=== PATIENT | female | born 1970 | race African-American/Black ===

== ENCOUNTER 2021-11-11 11:17 | Inpatient (IN) | payer MEDICARE, OTHER ==
[~2021-11-11] VITALS: Ht 177.8 cm; Wt 104.3 kg
[2021-11-11] VITALS (13 sets, daily range): BP systolic 113–145; BP diastolic 60–88
[~2021-11-11 11:17] MED LIST: ETOMIDATE 2MG/ML 10ML VIAL IV ONE; SUCCINYLCHOLINE CHLORIDE 200MG/10ML IV ONE
[2021-11-11] MEDS ORDERED: PIPERACILLIN/TAZ 3.375G PREMIX 50 ML IV ONE (11:45)
[2021-11-11] MEDS ORDERED: PROPOFOL 10MG/ML 100ML 100 ML IV ONE (11:45)
[2021-11-11] MEDS ORDERED: SODIUM CHLORIDE 0.9% 1000ML BAG (SEPSIS BOLUS) IV ONE (11:45)
[2021-11-11] MEDS ORDERED: VANCOMYCIN 1G PREMIX 200 ML IV ONE (11:45)
[2021-11-11 11:58] LABS: HEMATOCRIT. 42.6 % (36.0-48.0); HEMOGLOBIN. 13.1 g/dL (12.0-16.0); MEAN CORPUSCULAR HEMOGLOBIN 25.1 pg (28.0-32.0); MEAN CORPUSCULAR VOLUME 81.4 fL (81.0-99.0); MEAN PLATELET VOLUME 10.9 fl (7.4-10.4); PLATELET 355 x1000/uL (130-400); RED BLOOD CELL COUNT 5.23 mill/uL (4.2-5.4); RED CELL DISTRIBUTION WIDTH 17.6 % (11.6-14.6)
[2021-11-11] MEDS ORDERED: ACETAMINOPHEN 650MG SUPP PR ONE (12:00)
[2021-11-11 12:04] LABS: INR 1.2; PROTHROMBIN TIME 13.1 sec (9.6-11.0)
[2021-11-11] MEDS ORDERED: VANCOMYCIN 1GM PMX (XELLIA) 200 ML IV NR ×2 (12:15→16:00)
[2021-11-11 12:22] LABS: CLARITY URINE TURBID (CLEAR); COLOR URINE DARK YELLOW (YELLOW); KETONES URINE TRACE (NEGATIVE); LEUKOCYTE ESTERASE URINE 2+ (NEGATIVE); NITRITE URINE POSITIVE (NEGATIVE); OCCULT BLOOD URINE 3+ (NEGATIVE); PROTEIN URINE 4+ (NEGATIVE); SPECIFIC GRAVITY URINE 1.028 (1.005-1.030)
[2021-11-11 12:23] LABS: CHLORIDE 122 mEq/L (98-107)
[2021-11-11 12:27] LABS: BG CARBOXYHEMOGLOBIN 0.3 % (0.5-1.5); BG DEOXYHEMOGLOBIN 0.6 % (0.0-5.0); BG FRACTION INSPIRED OXYGEN 100; BG HCO3 ACT 18.1 mmol/L (22.0-26.0); BG METHEMOGLOBIN 0.1 % (0.0-1.5); BG OXYGEN SATURATION 99.4 % (92.0-98.5); BG PCO2 31.7 mmHg (35.0-45.0); BG PH 7.375 (7.350-7.450); BG PO2 362.4 mmHg (75.0-100.0); BG SAMPLE SITE RIGHT RADIAL; BG TOTAL HEMOGLOBIN 13.1 g/dL (12.0-18.0); BG VENT MODE VENT - AC
[2021-11-11] MEDS ORDERED: DEXAMETHASONE 10 MG/ML VIAL IV ONE (12:30)
[2021-11-11 12:35] LABS: PLATELET ESTIMATE NORMAL
[2021-11-11] MEDS ORDERED: ENOXAPARIN 40MG/0.4ML SYR SUBCUT SCH (15:15)
[2021-11-11] MEDS ORDERED: MAGNESIUM/ALUMINUM HYDROXIDE/SIMETHICONE 30ML UDC PO PRN (15:15)
[2021-11-11] MEDS ORDERED: ONDANSETRON HCL 4MG/2ML INJ IV PRN (15:15)
[2021-11-11] MEDS ORDERED: HYDROCODONE/ACETAMINOPHEN 5/325MG TABLET PO PRN (15:15)
[2021-11-11] MEDS ORDERED: GUAIFENESIN 200MG/10ML SUGAR FREE UDC PO PRN (15:15)
[2021-11-11] MEDS ORDERED: DOCUSATE SODIUM 100MG CAPSULE PO PRN (15:15)
[2021-11-11] MEDS ORDERED: HYDRALAZINE 20MG/ML VIAL IV PRN (15:15)
[2021-11-11] MEDS ORDERED: CLONIDINE 0.1MG TABLET PO PRN (15:15)
[2021-11-11] MEDS ORDERED: IPRATROPIUM/ALBUTEROL 0.5-3(2.5)MG/3ML NEB HHN PRN ×2 (15:15→15:30)
[2021-11-11] MEDS ORDERED: DEXTROSE 50% WATER 50ML SYRINGE IV PRN (15:15)
[2021-11-11] MEDS ORDERED: MORPHINE SULFATE 2 MG/ML CPJ (NOT FOR IM USE) IV PRN (15:15)
[2021-11-11] MEDS ORDERED: PIPERACILLIN/TAZ 3.375G PREMIX 50 ML IV SCH (15:15)
[2021-11-11] MEDS ORDERED: FENTANYL 2500MCG/250ML PMX 250 ML IV PRN (15:30)
[2021-11-11] MEDS: DEXTROSE 5% WATER 1,000 ML IV SCH (15:57)
[2021-11-11] MEDS: IPRATROPIUM/ALBUTEROL 0.5-3(2.5)MG/3ML NEB HHN SCH ×2 (16:04→20:23)
[2021-11-11] MEDS: ENOXAPARIN 30MG/0.3ML SYR SUBCUT SCH (18:48)
[2021-11-11] MEDS: BLOOD SUGAR DIAGNOSTIC STRIP TEST SCH (18:48)
[2021-11-11] MEDS: PIPERACILLIN/TAZOBACTAM 3.375 G in DEXTROSE 5% WATER 50 ML IV SCH (22:00)
[2021-11-11] MEDS: FAMOTIDINE 20MG TABLET PO SCH (22:00)
[2021-11-11] MEDS: SODIUM CHLORIDE 0.9% INJ 3ML FLUSH IVF SCH (22:00)
[2021-11-12] VITALS (49 sets, daily range): BP systolic 91–147; BP diastolic 36–77
[2021-11-12] MEDS: PROPOFOL 10MG/ML 100ML 100 ML IV PRN ×4 (00:11→15:36)
[2021-11-12] MEDS: IPRATROPIUM/ALBUTEROL 0.5-3(2.5)MG/3ML NEB HHN SCH ×7 (00:29→23:56)
[2021-11-12] MEDS: INSULIN LISPRO 100 UNITS/ML SUBCUT SCH ×4 (02:24→17:28)
[2021-11-12] MEDS: DEXTROSE 5% WATER 1,000 ML IV SCH ×2 (04:30→17:28)
[2021-11-12] MEDS: SODIUM CHLORIDE 0.9% INJ 3ML FLUSH IVF SCH ×3 (06:00→21:19)
[2021-11-12] MEDS: BLOOD SUGAR DIAGNOSTIC STRIP TEST SCH ×4 (06:00→17:23)
[2021-11-12] MEDS: ENOXAPARIN 30MG/0.3ML SYR SUBCUT SCH ×2 (06:12→17:27)
[2021-11-12 06:40] LABS: HEMATOCRIT. 34.9 % (36.0-48.0); HEMOGLOBIN. 10.3 g/dL (12.0-16.0); MEAN CORPUSCULAR HEMOGLOBIN 24.6 pg (28.0-32.0); MEAN CORPUSCULAR VOLUME 83.1 fL (81.0-99.0); MEAN PLATELET VOLUME 10.4 fl (7.4-10.4); PLATELET 217 x1000/uL (130-400); RED BLOOD CELL COUNT 4.21 mill/uL (4.2-5.4); RED CELL DISTRIBUTION WIDTH 17.7 % (11.6-14.6)
[2021-11-12 08:09] LABS: CHLORIDE 122 mEq/L (98-107)
[2021-11-12 09:11] LABS: BG CARBOXYHEMOGLOBIN 0.3 % (0.5-1.5); BG DEOXYHEMOGLOBIN 1.3 % (0.0-5.0); BG FRACTION INSPIRED OXYGEN 60; BG HCO3 ACT 18.1 mmol/L (22.0-26.0); BG METHEMOGLOBIN 0.3 % (0.0-1.5); BG OXYGEN SATURATION 98.7 % (92.0-98.5); BG OXYHEMOGLOBIN 98.1 % (94.0-97.0); BG PCO2 30.9 mmHg (35.0-45.0); BG PH 7.385 (7.350-7.450); BG PO2 196.5 mmHg (75.0-100.0); BG SAMPLE SITE RH; BG TOTAL HEMOGLOBIN 10.5 g/dL (12.0-18.0); BG VENT MODE VENT - AC
[2021-11-12] MEDS: INSULIN GLARGINE 100 UNITS/ML SUBCUT SCH (09:57)
[2021-11-12] MEDS: PIPERACILLIN/TAZOBACTAM 3.375 G in DEXTROSE 5% WATER 50 ML IV SCH ×2 (09:57→21:18)
[2021-11-12 12:51] LABS: PLATELET ESTIMATE NORMAL
[2021-11-12] MEDS ORDERED: POTASSIUM CHLORIDE 20MEQ/PACKET NG SCH (13:00)
[2021-11-12] MEDS ORDERED: VANCOMYCIN 1GM PMX (XELLIA) 200 ML IV SCH (16:00)
[2021-11-12] MEDS ORDERED: SERT100T MT (16:15)
[2021-11-12] MEDS ORDERED: LEVO300T2 MT (16:15)
[2021-11-12] MEDS ORDERED: ASPI-1497 MT (16:15)
[2021-11-12] MEDS ORDERED: LITH300C3 MT (16:15)
[2021-11-12] MEDS ORDERED: B12/1TAB MT (16:15)
[2021-11-12] MEDS ORDERED: ATOR40TA70 MT (16:15)
[2021-11-12] MEDS ORDERED: CLOZ100T31 MT (16:15)
[2021-11-12] MEDS ORDERED: DOCU-138 MT (16:15)
[2021-11-12] MEDS ORDERED: MULT-1116 MT (16:15)
[2021-11-12] MEDS ORDERED: METF-873 PO (16:15)
[2021-11-12] MEDS ORDERED: AMLO10TA80 MT (16:15)
[2021-11-12] MEDS: FAMOTIDINE 20MG TABLET PO SCH (21:18)
[2021-11-13] VITALS (59 sets, daily range): BP systolic 91–155; BP diastolic 39–78
[2021-11-13] MEDS: PROPOFOL 10MG/ML 100ML 100 ML IV PRN ×2 (00:11→08:05)
[2021-11-13] MEDS: INSULIN LISPRO 100 UNITS/ML SUBCUT SCH ×4 (00:28→17:43)
[2021-11-13] MEDS: BLOOD SUGAR DIAGNOSTIC STRIP TEST SCH ×4 (00:29→17:29)
[2021-11-13] MEDS: IPRATROPIUM/ALBUTEROL 0.5-3(2.5)MG/3ML NEB HHN SCH ×5 (03:44→20:37)
[2021-11-13] MEDS: SODIUM CHLORIDE 0.9% INJ 3ML FLUSH IVF SCH ×3 (05:04→20:37)
[2021-11-13] MEDS: ACETAMINOPHEN 325MG TABLET PO PRN ×2 (05:22→12:37)
[2021-11-13] MEDS: ENOXAPARIN 30MG/0.3ML SYR SUBCUT SCH ×2 (06:08→17:44)
[2021-11-13] MEDS: LEVOTHYROXINE SODIUM 200MCG TABLET PO SCH (08:04)
[2021-11-13] MEDS: DEXTROSE 5% WATER 1,000 ML IV SCH ×2 (08:04→20:37)
[2021-11-13 08:20] LABS: BG BASE EXCESS -5.2 mmol/L (-2.0-2.0); BG CARBOXYHEMOGLOBIN 0.2 % (0.5-1.5); BG DEOXYHEMOGLOBIN 1.1 % (0.0-5.0); BG FRACTION INSPIRED OXYGEN 40; BG HCO3 ACT 18.8 mmol/L (22.0-26.0); BG METHEMOGLOBIN 0.2 % (0.0-1.5); BG OXYGEN SATURATION 98.9 % (92.0-98.5); BG OXYHEMOGLOBIN 98.5 % (94.0-97.0); BG PO2 178.2 mmHg (75.0-100.0); BG SAMPLE SITE RIGHT RADIAL; BG TOTAL HEMOGLOBIN 10.1 g/dL (12.0-18.0); BG VENT MODE VENT - AC
[2021-11-13 08:43] LABS: HEMATOCRIT 31.2 % (36.0-48.0); HEMOGLOBIN 9.6 g/dL (12.0-16.0); MEAN CORPUSCULAR HEMOGLOBIN 24.7 pg (28.0-32.0); MEAN CORPUSCULAR VOLUME 80.5 fL (81.0-99.0); PLATELET 187 x1000/uL (130-400); RED BLOOD CELL COUNT 3.88 mill/uL (4.2-5.4); RED CELL DISTRIBUTION WIDTH 17.3 % (11.6-14.6)
[2021-11-13 08:46] LABS: CHLORIDE 119 mEq/L (98-107)
[2021-11-13] MEDS: INSULIN GLARGINE 100 UNITS/ML SUBCUT SCH (09:21)
[2021-11-13] MEDS: PIPERACILLIN/TAZOBACTAM 3.375 G in DEXTROSE 5% WATER 50 ML IV SCH ×2 (09:21→20:37)
[2021-11-13 10:25] LABS: BG BASE EXCESS -5.4 mmol/L (-2.0-2.0); BG CARBOXYHEMOGLOBIN 0.3 % (0.5-1.5); BG DEOXYHEMOGLOBIN 1.3 % (0.0-5.0); BG FRACTION INSPIRED OXYGEN 40; BG HCO3 ACT 18.6 mmol/L (22.0-26.0); BG METHEMOGLOBIN 0.2 % (0.0-1.5); BG OXYGEN SATURATION 98.7 % (92.0-98.5); BG OXYHEMOGLOBIN 98.2 % (94.0-97.0); BG PCO2 31.4 mmHg (35.0-45.0); BG PH 7.391 (7.350-7.450); BG PO2 136.1 mmHg (75.0-100.0); BG SAMPLE SITE RIGHT RADIAL; BG TOTAL HEMOGLOBIN 11.1 g/dL (12.0-18.0); BG TOTAL RESPIRATORY RATE 41 b/min; BG VENT MODE VENT - CPAP
[2021-11-13] MEDS: VANCOMYCIN 1GM PMX (XELLIA) 200 ML IV SCH (12:38)
[2021-11-13] MEDS ORDERED: NALOXONE HCL 0.4MG/ML VIAL IV PRN (14:45)
[2021-11-13] MEDS: FAMOTIDINE 20MG TABLET PO SCH (20:37)
[2021-11-14] VITALS (47 sets, daily range): BP systolic 102–172; BP diastolic 36–106
[2021-11-14] MEDS: INSULIN LISPRO 100 UNITS/ML SUBCUT SCH ×5 (00:05→23:58)
[2021-11-14] MEDS: IPRATROPIUM/ALBUTEROL 0.5-3(2.5)MG/3ML NEB HHN SCH ×5 (01:27→20:00)
[2021-11-14] MEDS: BLOOD SUGAR DIAGNOSTIC STRIP TEST SCH ×5 (06:00→23:43)
[2021-11-14 06:11] LABS: BASOPHILS % 0.3 % (0.0-2.0); EOSINOPHILS % 5.9 % (0.0-5.0); HEMATOCRIT. 33.3 % (36.0-48.0); HEMOGLOBIN. 10.3 g/dL (12.0-16.0); LYMPHOCYTES % 14.3 % (20.0-50.0); MEAN PLATELET VOLUME 10.3 fl (7.4-10.4); MONOCYTES % 4.4 % (2.0-8.0); NEUTROPHILS % 75.1 % (40.0-76.0); PLATELET 197 x1000/uL (130-400); RED BLOOD CELL COUNT 4.11 mill/uL (4.2-5.4); RED CELL DISTRIBUTION WIDTH 17.5 % (11.6-14.6)
[2021-11-14 06:15] LABS: CHLORIDE 113 mEq/L (98-107)
[2021-11-14] MEDS: SODIUM CHLORIDE 0.9% INJ 3ML FLUSH IVF SCH ×3 (06:52→21:07)
[2021-11-14] MEDS: ENOXAPARIN 30MG/0.3ML SYR SUBCUT SCH ×2 (06:52→17:42)
[2021-11-14] MEDS: ACETAMINOPHEN 325MG TABLET PO PRN ×3 (08:10→21:07)
[2021-11-14] MEDS: LEVOTHYROXINE SODIUM 200MCG TABLET PO SCH (08:11)
[2021-11-14] MEDS: PIPERACILLIN/TAZOBACTAM 3.375 G in DEXTROSE 5% WATER 50 ML IV SCH ×2 (08:12→21:07)
[2021-11-14] MEDS: CITRIC ACID/SODIUM CITRATE SOLN 30ML UDC PO SCH ×3 (08:22→21:06)
[2021-11-14] MEDS: VANCOMYCIN 1GM PMX (XELLIA) 200 ML IV SCH ×2 (08:27→21:07)
[2021-11-14] MEDS ORDERED: POTASSIUM CHLORIDE 20MEQ/PACKET PO SCH (09:00)
[2021-11-14] MEDS ORDERED: INSULIN GLARGINE 100 UNITS/ML SUBCUT SCH (10:00)
[2021-11-14] MEDS: DEXTROSE 5% WATER 1,000 ML IV SCH ×2 (10:02→23:43)
[2021-11-14] MEDS: FAMOTIDINE 20MG TABLET PO SCH (21:07)
[2021-11-15] VITALS (31 sets, daily range): BP systolic 46–142; BP diastolic 20–108
[2021-11-15] MEDS: IPRATROPIUM/ALBUTEROL 0.5-3(2.5)MG/3ML NEB HHN SCH ×6 (04:00→20:41)
[2021-11-15] MEDS: BLOOD SUGAR DIAGNOSTIC STRIP TEST SCH ×3 (05:12→17:53)
[2021-11-15] MEDS: SODIUM CHLORIDE 0.9% INJ 3ML FLUSH IVF SCH ×3 (05:12→20:58)
[2021-11-15] MEDS: CITRIC ACID/SODIUM CITRATE SOLN 30ML UDC PO SCH ×3 (05:21→21:09)
[2021-11-15] MEDS: ENOXAPARIN 30MG/0.3ML SYR SUBCUT SCH ×2 (05:22→18:25)
[2021-11-15] MEDS: ACETAMINOPHEN 325MG TABLET PO PRN ×2 (05:22→11:53)
[2021-11-15] MEDS: INSULIN LISPRO 100 UNITS/ML SUBCUT SCH ×3 (05:23→18:26)
[2021-11-15] MEDS: LEVOTHYROXINE SODIUM 200MCG TABLET PO SCH (05:23)
[2021-11-15 06:27] LABS: BASOPHILS % 0.6 % (0.0-2.0); EOSINOPHILS % 3.8 % (0.0-5.0); HEMOGLOBIN. 9.8 g/dL (12.0-16.0); LYMPHOCYTES % 10.9 % (20.0-50.0); MEAN CORPUSCULAR HEMOGLOBIN 25.1 pg (28.0-32.0); MEAN CORPUSCULAR VOLUME 79.4 fL (81.0-99.0); MEAN PLATELET VOLUME 10.9 fl (7.4-10.4); MONOCYTES % 3.3 % (2.0-8.0); NEUTROPHILS % 81.4 % (40.0-76.0); PLATELET 221 x1000/uL (130-400); RED BLOOD CELL COUNT 3.91 mill/uL (4.2-5.4)
[2021-11-15 06:29] LABS: CHLORIDE 107 mEq/L (98-107)
[2021-11-15 06:38] LABS: PHOSPHORUS 1.5 mg/dL (2.5-4.9)
[2021-11-15] MEDS ORDERED: POTASSIUM CHLORIDE INJ 40 MEQ in DEXT 5% WATER 250 ML IV ONE (07:30)
[2021-11-15] MEDS: VANCOMYCIN 1GM PMX (XELLIA) 200 ML IV SCH ×2 (08:06→20:54)
[2021-11-15] MEDS: KCL 20MEQ/100ML X 2 FOR TOTAL KCL 40MEQ/200ML IV SCH ×2 (08:06→11:47)
[2021-11-15] MEDS: PIPERACILLIN/TAZOBACTAM 3.375 G in DEXTROSE 5% WATER 50 ML IV SCH ×2 (09:31→20:54)
[2021-11-15] MEDS ORDERED: MAGNESIUM 2 G PREMIX 50 ML IV SCH (10:00)
[2021-11-15] MEDS ORDERED: POTASSIUM PHOS,M-BASIC-D-BASIC 30 MMOL in DEXT 5% WATER 500 ML IV SCH (10:00)
[2021-11-15] MEDS: INSULIN GLARGINE 100 UNITS/ML SUBCUT SCH (10:17)
[2021-11-15] MEDS: DIPHENHYDRAMINE 50MG/ML VIAL IV PRN (21:09)
[2021-11-15] MEDS: FAMOTIDINE 20MG TABLET PO SCH (21:11)
[2021-11-16] MEDS: IPRATROPIUM/ALBUTEROL 0.5-3(2.5)MG/3ML NEB HHN SCH ×5 (00:24→19:52)
[2021-11-16 04:00] VITALS: BP 112/74
[2021-11-16 06:38] LABS: BASOPHILS % 0.5 % (0.0-2.0); EOSINOPHILS % 4.5 % (0.0-5.0); HEMATOCRIT. 31.3 % (36.0-48.0); HEMOGLOBIN. 9.9 g/dL (12.0-16.0); LYMPHOCYTES % 16.2 % (20.0-50.0); MEAN CORPUSCULAR HEMOGLOBIN 24.9 pg (28.0-32.0); MEAN CORPUSCULAR VOLUME 79.1 fL (81.0-99.0); MEAN PLATELET VOLUME 10.4 fl (7.4-10.4); MONOCYTES % 4.1 % (2.0-8.0); NEUTROPHILS % 74.7 % (40.0-76.0); PLATELET 265 x1000/uL (130-400); RED BLOOD CELL COUNT 3.96 mill/uL (4.2-5.4); RED CELL DISTRIBUTION WIDTH 16.8 % (11.6-14.6)
[2021-11-16] MEDS: CITRIC ACID/SODIUM CITRATE SOLN 30ML UDC PO SCH ×3 (06:39→21:19)
[2021-11-16] MEDS: ENOXAPARIN 30MG/0.3ML SYR SUBCUT SCH ×2 (06:39→18:13)
[2021-11-16] MEDS: LEVOTHYROXINE SODIUM 150MCG TABLET PO SCH (06:40)
[2021-11-16] MEDS: BLOOD SUGAR DIAGNOSTIC STRIP TEST SCH ×4 (06:41→18:09)
[2021-11-16] MEDS: SODIUM CHLORIDE 0.9% INJ 3ML FLUSH IVF SCH ×3 (06:42→21:20)
[2021-11-16] MEDS: INSULIN LISPRO 100 UNITS/ML SUBCUT SCH ×4 (06:46→18:49)
[2021-11-16 06:57] LABS: CHLORIDE 107 mEq/L (98-107)
[2021-11-16 07:13] LABS: PHOSPHORUS 2.8 mg/dL (2.5-4.9)
[2021-11-16 08:00] VITALS: BP 137/67
[2021-11-16] MEDS: VANCOMYCIN 1GM PMX (XELLIA) 200 ML IV SCH ×2 (09:12→21:19)
[2021-11-16] MEDS: PIPERACILLIN/TAZOBACTAM 3.375 G in DEXTROSE 5% WATER 50 ML IV SCH ×2 (09:13→21:19)
[2021-11-16] MEDS ORDERED: POTASSIUM CHLORIDE INJ 40 MEQ in DEXT 5% WATER 250 ML IV NR ×2 (11:00→12:30)
[2021-11-16] MEDS: INSULIN GLARGINE 100 UNITS/ML SUBCUT SCH (11:42)
[2021-11-16 11:43] VITALS: BP 129/64
[2021-11-16 16:00] VITALS: BP 158/67
[2021-11-16 20:00] VITALS: BP 122/59
[2021-11-16] MEDS: FAMOTIDINE 20MG TABLET PO SCH (21:19)
[2021-11-17] VITALS (7 sets, daily range): BP systolic 121–138; BP diastolic 64–79
[2021-11-17] MEDS: IPRATROPIUM/ALBUTEROL 0.5-3(2.5)MG/3ML NEB HHN SCH ×4 (02:31→20:37)
[2021-11-17] MEDS: CITRIC ACID/SODIUM CITRATE SOLN 30ML UDC PO SCH ×3 (06:06→22:56)
[2021-11-17] MEDS: ENOXAPARIN 30MG/0.3ML SYR SUBCUT SCH ×2 (06:06→18:36)
[2021-11-17] MEDS: LEVOTHYROXINE SODIUM 150MCG TABLET PO SCH (06:06)
[2021-11-17] MEDS: SODIUM CHLORIDE 0.9% INJ 3ML FLUSH IVF SCH ×3 (06:06→22:58)
[2021-11-17] MEDS: BLOOD SUGAR DIAGNOSTIC STRIP TEST SCH ×4 (06:06→18:34)
[2021-11-17] MEDS: INSULIN LISPRO 100 UNITS/ML SUBCUT SCH ×4 (06:07→18:56)
[2021-11-17] MEDS: PIPERACILLIN/TAZOBACTAM 3.375 G in DEXTROSE 5% WATER 50 ML IV SCH (09:27)
[2021-11-17] MEDS: INSULIN GLARGINE 100 UNITS/ML SUBCUT SCH (11:04)
[2021-11-17] MEDS: ACETAMINOPHEN 325MG TABLET PO PRN ×2 (13:01→18:35)
[2021-11-17 17:30] LABS: CHLORIDE 111 mEq/L (98-107)
[2021-11-17 17:40] LABS: PHOSPHORUS 2.4 mg/dL (2.5-4.9)
[2021-11-17] MEDS ORDERED: POTASSIUM CHLORIDE 20MEQ TABLET SR PO NR (21:00)
[2021-11-17] MEDS ORDERED: POTASSIUM PHOS,M-BASIC-D-BASIC 15 MMOL in DEXT 5% WATER 245 ML IV NR (22:00)
[2021-11-17] MEDS: FAMOTIDINE 20MG TABLET PO SCH (22:57)
[2021-11-18] VITALS: BP 130/69
[2021-11-18] MEDS: INSULIN LISPRO 100 UNITS/ML SUBCUT SCH ×4 (01:51→18:00)
[2021-11-18] MEDS: IPRATROPIUM/ALBUTEROL 0.5-3(2.5)MG/3ML NEB HHN SCH ×4 (02:22→18:00)
[2021-11-18 04:00] VITALS: BP 128/52
[2021-11-18] MEDS: SODIUM CHLORIDE 0.9% INJ 3ML FLUSH IVF SCH ×3 (05:58→21:54)
[2021-11-18] MEDS: LEVOTHYROXINE SODIUM 150MCG TABLET PO SCH (05:59)
[2021-11-18] MEDS: BLOOD SUGAR DIAGNOSTIC STRIP TEST SCH ×4 (06:00→17:41)
[2021-11-18] MEDS: CITRIC ACID/SODIUM CITRATE SOLN 30ML UDC PO SCH ×3 (06:00→21:54)
[2021-11-18] MEDS: ENOXAPARIN 30MG/0.3ML SYR SUBCUT SCH ×2 (06:35→17:53)
[2021-11-18 06:49] LABS: BASOPHILS % 0.5 % (0.0-2.0); EOSINOPHILS % 2.4 % (0.0-5.0); HEMATOCRIT. 31.6 % (36.0-48.0); HEMOGLOBIN. 10.2 g/dL (12.0-16.0); LYMPHOCYTES % 21.4 % (20.0-50.0); MEAN CORPUSCULAR HEMOGLOBIN 25.7 pg (28.0-32.0); MEAN CORPUSCULAR VOLUME 79.4 fL (81.0-99.0); MEAN PLATELET VOLUME 9.8 fl (7.4-10.4); MONOCYTES % 6.3 % (2.0-8.0); NEUTROPHILS % 69.4 % (40.0-76.0); PLATELET 323 x1000/uL (130-400); RED BLOOD CELL COUNT 3.98 mill/uL (4.2-5.4); RED CELL DISTRIBUTION WIDTH 16.8 % (11.6-14.6)
[2021-11-18 07:15] LABS: CHLORIDE 109 mEq/L (98-107)
[2021-11-18 07:24] LABS: PHOSPHORUS 2.7 mg/dL (2.5-4.9)
[2021-11-18 08:30] VITALS: BP 133/60
[2021-11-18] MEDS ORDERED: POTASSIUM CHLORIDE 20MEQ/PACKET PO NR (10:30)
[2021-11-18] MEDS: INSULIN GLARGINE 100 UNITS/ML SUBCUT SCH (10:40)
[2021-11-18 12:11] VITALS: BP 127/64
[2021-11-18] MEDS: HALOPERIDOL LACTATE 5MG/ML VIAL IM PRN (15:40)
[2021-11-18 16:30] VITALS: BP 138/61
[2021-11-18 20:00] VITALS: BP 117/86
[2021-11-18] MEDS: FAMOTIDINE 20MG TABLET PO SCH (21:53)
[2021-11-19] VITALS: BP 121/57
[2021-11-19] MEDS: SODIUM CHLORIDE 0.9% INJ 3ML FLUSH IVF SCH ×3 (05:45→20:41)
[2021-11-19] MEDS: BLOOD SUGAR DIAGNOSTIC STRIP TEST SCH ×4 (05:46→18:01)
[2021-11-19] MEDS: ENOXAPARIN 30MG/0.3ML SYR SUBCUT SCH ×2 (06:00→18:01)
[2021-11-19] MEDS: CITRIC ACID/SODIUM CITRATE SOLN 30ML UDC PO SCH ×3 (06:00→20:40)
[2021-11-19 06:16] VITALS: BP 117/64
[2021-11-19] MEDS: LEVOTHYROXINE SODIUM 150MCG TABLET PO SCH (07:20)
[2021-11-19 07:21] LABS: CHLORIDE 114 mEq/L (98-107)
[2021-11-19 07:22] LABS: BASOPHILS % 0.3 % (0.0-2.0); EOSINOPHILS % 0.8 % (0.0-5.0); HEMATOCRIT. 32.1 % (36.0-48.0); HEMOGLOBIN. 10.4 g/dL (12.0-16.0); LYMPHOCYTES % 20.6 % (20.0-50.0); MEAN CORPUSCULAR HEMOGLOBIN 25.7 pg (28.0-32.0); MEAN CORPUSCULAR VOLUME 79.6 fL (81.0-99.0); MEAN PLATELET VOLUME 9.9 fl (7.4-10.4); MONOCYTES % 7.1 % (2.0-8.0); NEUTROPHILS % 71.2 % (40.0-76.0); PLATELET 342 x1000/uL (130-400); RED BLOOD CELL COUNT 4.03 mill/uL (4.2-5.4); RED CELL DISTRIBUTION WIDTH 17.3 % (11.6-14.6)
[2021-11-19] MEDS: INSULIN LISPRO 100 UNITS/ML SUBCUT SCH ×4 (07:34→17:57)
[2021-11-19] MEDS ORDERED: POTASSIUM CHLORIDE 20MEQ/PACKET PO NR ×2 (07:45→09:00)
[2021-11-19 08:00] VITALS: BP 122/59
[2021-11-19 08:14] LABS: PHOSPHORUS 2.9 mg/dL (2.5-4.9)
[2021-11-19] MEDS: IPRATROPIUM/ALBUTEROL 0.5-3(2.5)MG/3ML NEB HHN SCH ×4 (08:24→19:56)
[2021-11-19] MEDS: INSULIN GLARGINE 100 UNITS/ML SUBCUT SCH (09:13)
[2021-11-19 12:00] VITALS: BP 126/66
[2021-11-19] MEDS: HALOPERIDOL LACTATE 5MG/ML VIAL IM PRN (14:20)
[2021-11-19 16:00] VITALS: BP 131/59
[2021-11-19 20:00] VITALS: BP 134/57
[2021-11-19] MEDS: FAMOTIDINE 20MG TABLET PO SCH (20:40)
[2021-11-19] MEDS: QUETIAPINE FUMARATE 50MG TABLET PO SCH (20:40)
[2021-11-20] VITALS: BP 116/53
[2021-11-20] MEDS: INSULIN LISPRO 100 UNITS/ML SUBCUT SCH ×4 (00:36→19:41)
[2021-11-20] MEDS: BLOOD SUGAR DIAGNOSTIC STRIP TEST SCH ×4 (00:36→18:07)
[2021-11-20] MEDS: IPRATROPIUM/ALBUTEROL 0.5-3(2.5)MG/3ML NEB HHN SCH ×4 (01:12→20:17)
[2021-11-20 04:00] VITALS: BP 132/76
[2021-11-20] MEDS: SODIUM CHLORIDE 0.9% INJ 3ML FLUSH IVF SCH ×3 (05:44→22:28)
[2021-11-20] MEDS: CITRIC ACID/SODIUM CITRATE SOLN 30ML UDC PO SCH ×3 (05:44→22:27)
[2021-11-20] MEDS: ENOXAPARIN 30MG/0.3ML SYR SUBCUT SCH ×2 (05:44→17:57)
[2021-11-20 05:46] LABS: BASOPHILS % 0.5 % (0.0-2.0); EOSINOPHILS % 2.2 % (0.0-5.0); HEMOGLOBIN. 10.6 g/dL (12.0-16.0); LYMPHOCYTES % 16.2 % (20.0-50.0); MEAN CORPUSCULAR HEMOGLOBIN 25.2 pg (28.0-32.0); MEAN CORPUSCULAR VOLUME 80.7 fL (81.0-99.0); MEAN PLATELET VOLUME 9.3 fl (7.4-10.4); MONOCYTES % 5.7 % (2.0-8.0); NEUTROPHILS % 75.4 % (40.0-76.0); PLATELET 336 x1000/uL (130-400); RED BLOOD CELL COUNT 4.21 mill/uL (4.2-5.4); RED CELL DISTRIBUTION WIDTH 17.4 % (11.6-14.6)
[2021-11-20 06:02] LABS: CHLORIDE 118 mEq/L (98-107)
[2021-11-20 06:08] LABS: PHOSPHORUS 3.5 mg/dL (2.5-4.9)
[2021-11-20] MEDS: LEVOTHYROXINE SODIUM 150MCG TABLET PO SCH (07:01)
[2021-11-20 08:00] VITALS: BP 98/46
[2021-11-20] MEDS: QUETIAPINE FUMARATE 50MG TABLET PO SCH ×2 (09:52→22:27)
[2021-11-20 12:00] VITALS: BP 105/49
[2021-11-20] MEDS: INSULIN GLARGINE 100 UNITS/ML SUBCUT SCH (13:06)
[2021-11-20 16:00] VITALS: BP 125/50
[2021-11-20 20:00] VITALS: BP 115/52
[2021-11-20] MEDS: FAMOTIDINE 20MG TABLET PO SCH (22:26)
[2021-11-21] VITALS: BP 119/63
[2021-11-21] MEDS: BLOOD SUGAR DIAGNOSTIC STRIP TEST SCH ×5 (00:23→23:59)
[2021-11-21] MEDS: IPRATROPIUM/ALBUTEROL 0.5-3(2.5)MG/3ML NEB HHN SCH ×4 (02:14→21:15)
[2021-11-21 04:00] VITALS: BP 121/66
[2021-11-21] MEDS: INSULIN LISPRO 100 UNITS/ML SUBCUT SCH ×5 (06:00→23:59)
[2021-11-21] MEDS: SODIUM CHLORIDE 0.9% INJ 3ML FLUSH IVF SCH ×3 (06:25→21:45)
[2021-11-21] MEDS: CITRIC ACID/SODIUM CITRATE SOLN 30ML UDC PO SCH ×3 (06:25→21:45)
[2021-11-21] MEDS: ENOXAPARIN 30MG/0.3ML SYR SUBCUT SCH ×2 (06:25→18:00)
[2021-11-21] MEDS: LEVOTHYROXINE SODIUM 150MCG TABLET PO SCH (06:26)
[2021-11-21 07:16] LABS: CHLORIDE 119 mEq/L (98-107)
[2021-11-21 07:27] LABS: BASOPHILS % 0.4 % (0.0-2.0); EOSINOPHILS % 2.9 % (0.0-5.0); HEMATOCRIT. 34.5 % (36.0-48.0); HEMOGLOBIN. 10.8 g/dL (12.0-16.0); LYMPHOCYTES % 21.5 % (20.0-50.0); MEAN CORPUSCULAR HEMOGLOBIN 25.2 pg (28.0-32.0); MEAN CORPUSCULAR VOLUME 80.1 fL (81.0-99.0); MEAN PLATELET VOLUME 9.4 fl (7.4-10.4); MONOCYTES % 4.8 % (2.0-8.0); NEUTROPHILS % 70.4 % (40.0-76.0); PLATELET 351 x1000/uL (130-400); RED CELL DISTRIBUTION WIDTH 17.5 % (11.6-14.6)
[2021-11-21 08:00] VITALS: BP 106/66
[2021-11-21] MEDS: HALOPERIDOL LACTATE 5MG/ML VIAL IM PRN (09:03)
[2021-11-21] MEDS: INSULIN GLARGINE 100 UNITS/ML SUBCUT SCH (09:04)
[2021-11-21] MEDS ORDERED: SODIUM CHLORIDE 0.45% 500 ML IV ONE (11:00)
[2021-11-21 12:00] VITALS: BP 110/80
[2021-11-21] MEDS: QUETIAPINE FUMARATE 50MG TABLET PO SCH ×2 (14:53→21:45)
[2021-11-21 16:00] VITALS: BP 133/69
[2021-11-21 20:00] VITALS: BP 124/58
[2021-11-21] MEDS: FAMOTIDINE 20MG TABLET PO SCH (21:45)
[2021-11-22] VITALS: BP 119/60
[2021-11-22] MEDS: IPRATROPIUM/ALBUTEROL 0.5-3(2.5)MG/3ML NEB HHN SCH ×4 (01:44→21:37)
[2021-11-22 04:00] VITALS: BP 114/81
[2021-11-22] MEDS: CITRIC ACID/SODIUM CITRATE SOLN 30ML UDC PO SCH ×3 (06:22→21:49)
[2021-11-22] MEDS: SODIUM CHLORIDE 0.9% INJ 3ML FLUSH IVF SCH ×3 (06:22→21:49)
[2021-11-22] MEDS: ACETAMINOPHEN 325MG TABLET PO PRN ×2 (06:23→13:42)
[2021-11-22] MEDS: ENOXAPARIN 30MG/0.3ML SYR SUBCUT SCH ×2 (06:23→17:26)
[2021-11-22] MEDS: BLOOD SUGAR DIAGNOSTIC STRIP TEST SCH ×3 (06:24→17:27)
[2021-11-22] MEDS: INSULIN LISPRO 100 UNITS/ML SUBCUT SCH ×3 (06:24→17:26)
[2021-11-22] MEDS: LEVOTHYROXINE SODIUM 150MCG TABLET PO SCH (06:25)
[2021-11-22 07:38] LABS: BASOPHILS % 0.5 % (0.0-2.0); EOSINOPHILS % 2.3 % (0.0-5.0); HEMATOCRIT. 34.6 % (36.0-48.0); HEMOGLOBIN. 10.7 g/dL (12.0-16.0); LYMPHOCYTES % 17.1 % (20.0-50.0); MEAN CORPUSCULAR HEMOGLOBIN 25.1 pg (28.0-32.0); MEAN CORPUSCULAR VOLUME 80.9 fL (81.0-99.0); MEAN PLATELET VOLUME 9.5 fl (7.4-10.4); MONOCYTES % 4.4 % (2.0-8.0); NEUTROPHILS % 75.7 % (40.0-76.0); PLATELET 354 x1000/uL (130-400); RED BLOOD CELL COUNT 4.27 mill/uL (4.2-5.4); RED CELL DISTRIBUTION WIDTH 17.9 % (11.6-14.6)
[2021-11-22 07:58] LABS: CHLORIDE 116 mEq/L (98-107)
[2021-11-22 08:00] VITALS: BP 126/62
[2021-11-22] MEDS: INSULIN GLARGINE 100 UNITS/ML SUBCUT SCH (10:40)
[2021-11-22] MEDS: QUETIAPINE FUMARATE 50MG TABLET PO SCH ×2 (10:41→21:49)
[2021-11-22] MEDS ORDERED: HALOPERIDOL LACTATE 5MG/ML VIAL IM NR (11:15)
[2021-11-22 12:24] VITALS: BP 120/68
[2021-11-22] MEDS: OLANZAPINE 5MG TABLET PO SCH (13:11)
[2021-11-22] MEDS: SODIUM CHLORIDE 0.45% 1,000 ML IV SCH (13:42)
[2021-11-22] MEDS ORDERED: POTASSIUM CHLORIDE INJ 40 MEQ in DEXT 5% WATER 250 ML IV NR (14:00)
[2021-11-22 16:00] VITALS: BP 132/64
[2021-11-22] MEDS: LEVOFLOXACIN 500MG PREMIX 100 ML IV SCH (17:15)
[2021-11-22 20:00] VITALS: BP 129/89
[2021-11-22] MEDS: FAMOTIDINE 20MG TABLET PO SCH (21:49)
[2021-11-23] VITALS: BP 122/92
[2021-11-23] MEDS: IPRATROPIUM/ALBUTEROL 0.5-3(2.5)MG/3ML NEB HHN SCH ×4 (02:16→21:40)
[2021-11-23 04:00] VITALS: BP 108/57
[2021-11-23] MEDS: SODIUM CHLORIDE 0.45% 1,000 ML IV SCH (05:10)
[2021-11-23] MEDS: INSULIN LISPRO 100 UNITS/ML SUBCUT SCH ×4 (06:00→18:00)
[2021-11-23] MEDS: CITRIC ACID/SODIUM CITRATE SOLN 30ML UDC PO SCH ×3 (06:30→21:19)
[2021-11-23] MEDS: ENOXAPARIN 30MG/0.3ML SYR SUBCUT SCH ×2 (06:30→18:39)
[2021-11-23] MEDS: LEVOTHYROXINE SODIUM 150MCG TABLET PO SCH (06:30)
[2021-11-23] MEDS: SODIUM CHLORIDE 0.9% INJ 3ML FLUSH IVF SCH ×3 (06:31→21:15)
[2021-11-23] MEDS: BLOOD SUGAR DIAGNOSTIC STRIP TEST SCH ×4 (06:37→18:33)
[2021-11-23 06:48] LABS: BASOPHILS % 0.5 % (0.0-2.0); EOSINOPHILS % 2.2 % (0.0-5.0); HEMATOCRIT. 32.1 % (36.0-48.0); HEMOGLOBIN. 10.1 g/dL (12.0-16.0); LYMPHOCYTES % 20.6 % (20.0-50.0); MEAN CORPUSCULAR HEMOGLOBIN 25.6 pg (28.0-32.0); MEAN CORPUSCULAR VOLUME 81.3 fL (81.0-99.0); MEAN PLATELET VOLUME 9.7 fl (7.4-10.4); MONOCYTES % 4.8 % (2.0-8.0); NEUTROPHILS % 71.9 % (40.0-76.0); PLATELET 319 x1000/uL (130-400); RED BLOOD CELL COUNT 3.95 mill/uL (4.2-5.4)
[2021-11-23 07:33] LABS: CHLORIDE 116 mEq/L (98-107)
[2021-11-23 08:00] VITALS: BP 120/77
[2021-11-23] MEDS ORDERED: POTASSIUM CHLORIDE 20MEQ/PACKET PO SCH (08:00)
[2021-11-23 12:00] VITALS: BP 126/66
[2021-11-23] MEDS: QUETIAPINE FUMARATE 50MG TABLET PO SCH ×2 (12:20→21:19)
[2021-11-23] MEDS: OLANZAPINE 5MG TABLET PO SCH (12:21)
[2021-11-23] MEDS: INSULIN GLARGINE 100 UNITS/ML SUBCUT SCH (13:46)
[2021-11-23] MEDS: DEXTROSE 5% WATER 1,000 ML IV SCH ×2 (13:46→21:14)
[2021-11-23 16:00] VITALS: BP 142/73
[2021-11-23] MEDS: LEVOFLOXACIN 500MG PREMIX 100 ML IV SCH (18:39)
[2021-11-23 20:00] VITALS: BP 138/63
[2021-11-23 20:07] LABS: TOTAL IRON BINDING CAPACITY 308 ug/dL (250-450)
[2021-11-23] MEDS: PANTOPRAZOLE SODIUM 40 MG/VIAL IV SCH (20:09)
[2021-11-23 20:45] LABS: FOLIC ACID (FOLATE) SERUM 4.9 ng/mL (>5.38)
[2021-11-24] VITALS: BP 123/60
[2021-11-24] MEDS: BLOOD SUGAR DIAGNOSTIC STRIP TEST SCH ×4 (00:12→16:46)
[2021-11-24] MEDS: IPRATROPIUM/ALBUTEROL 0.5-3(2.5)MG/3ML NEB HHN SCH ×4 (02:25→21:23)
[2021-11-24 04:00] VITALS: BP 102/50
[2021-11-24] MEDS: SODIUM CHLORIDE 0.9% INJ 3ML FLUSH IVF SCH ×3 (05:52→21:23)
[2021-11-24 06:28] LABS: BASOPHILS % 0.8 % (0.0-2.0); EOSINOPHILS % 3.6 % (0.0-5.0); HEMATOCRIT. 31.7 % (36.0-48.0); HEMOGLOBIN. 9.9 g/dL (12.0-16.0); LYMPHOCYTES % 17.3 % (20.0-50.0); MEAN CORPUSCULAR HEMOGLOBIN 25.1 pg (28.0-32.0); MEAN CORPUSCULAR VOLUME 80.7 fL (81.0-99.0); MONOCYTES % 4.2 % (2.0-8.0); NEUTROPHILS % 74.1 % (40.0-76.0); PLATELET 294 x1000/uL (130-400); RED BLOOD CELL COUNT 3.93 mill/uL (4.2-5.4); RED CELL DISTRIBUTION WIDTH 18.2 % (11.6-14.6)
[2021-11-24] MEDS: CITRIC ACID/SODIUM CITRATE SOLN 30ML UDC PO SCH ×3 (06:36→21:39)
[2021-11-24] MEDS: ENOXAPARIN 30MG/0.3ML SYR SUBCUT SCH ×2 (06:36→17:09)
[2021-11-24] MEDS: LEVOTHYROXINE SODIUM 150MCG TABLET PO SCH (06:36)
[2021-11-24] MEDS: INSULIN LISPRO 100 UNITS/ML SUBCUT SCH ×4 (06:41→16:47)
[2021-11-24 07:28] LABS: CHLORIDE 110 mEq/L (98-107)
[2021-11-24 07:33] LABS: PHOSPHORUS 3.6 mg/dL (2.5-4.9)
[2021-11-24 08:00] VITALS: BP 118/74
[2021-11-24] MEDS: OLANZAPINE 5MG TABLET PO SCH (09:31)
[2021-11-24] MEDS: QUETIAPINE FUMARATE 50MG TABLET PO SCH ×2 (09:31→21:38)
[2021-11-24] MEDS: PANTOPRAZOLE SODIUM 40 MG/VIAL IV SCH (09:31)
[2021-11-24] MEDS: INSULIN GLARGINE 100 UNITS/ML SUBCUT SCH (09:34)
[2021-11-24 12:00] VITALS: BP 122/73
[2021-11-24] MEDS: DEXTROSE 5% WATER 1,000 ML IV SCH ×2 (12:19→23:59)
[2021-11-24] MEDS: LEVOFLOXACIN 500MG PREMIX 100 ML IV SCH (15:20)
[2021-11-24 16:00] VITALS: BP 104/67
[2021-11-24] MEDS: ASCORBIC ACID 500 MG TABLET PO SCH (18:23)
[2021-11-24] MEDS: FERROUS SULFATE 325MG TABLET PO SCH (18:23)
[2021-11-24 20:00] VITALS: BP 136/71
[2021-11-24] MEDS ORDERED: DIVALPROEX SODIUM 250MG DR TABLET PO SCH (21:00)
[2021-11-24] MEDS: VALPROATE SODIUM 250MG/5ML UDC NG SCH (21:48)
[2021-11-25] VITALS: BP 124/65
[2021-11-25] MEDS: BLOOD SUGAR DIAGNOSTIC STRIP TEST SCH ×4 (00:16→16:54)
[2021-11-25] MEDS: IPRATROPIUM/ALBUTEROL 0.5-3(2.5)MG/3ML NEB HHN SCH ×4 (01:46→20:06)
[2021-11-25] MEDS: HALOPERIDOL LACTATE 5MG/ML VIAL IM PRN ×2 (01:48→09:40)
[2021-11-25] MEDS: DIPHENHYDRAMINE 50MG/ML VIAL IV PRN (02:47)
[2021-11-25 04:00] VITALS: BP 133/57
[2021-11-25] MEDS: SODIUM CHLORIDE 0.9% INJ 3ML FLUSH IVF SCH ×3 (06:00→20:47)
[2021-11-25] MEDS: INSULIN LISPRO 100 UNITS/ML SUBCUT SCH ×4 (06:00→16:53)
[2021-11-25] MEDS: ENOXAPARIN 30MG/0.3ML SYR SUBCUT SCH ×2 (06:37→18:34)
[2021-11-25] MEDS: LEVOTHYROXINE SODIUM 150MCG TABLET PO SCH (06:37)
[2021-11-25] MEDS: CITRIC ACID/SODIUM CITRATE SOLN 30ML UDC PO SCH (06:37)
[2021-11-25 07:21] LABS: BASOPHILS % 0.5 % (0.0-2.0); EOSINOPHILS % 3.3 % (0.0-5.0); HEMATOCRIT. 32.7 % (36.0-48.0); HEMOGLOBIN. 10.4 g/dL (12.0-16.0); LYMPHOCYTES % 18.7 % (20.0-50.0); MEAN CORPUSCULAR HEMOGLOBIN 25.2 pg (28.0-32.0); MEAN CORPUSCULAR VOLUME 79.2 fL (81.0-99.0); MEAN PLATELET VOLUME 10.1 fl (7.4-10.4); MONOCYTES % 5.1 % (2.0-8.0); NEUTROPHILS % 72.4 % (40.0-76.0); PLATELET 300 x1000/uL (130-400); RED BLOOD CELL COUNT 4.13 mill/uL (4.2-5.4); RED CELL DISTRIBUTION WIDTH 17.5 % (11.6-14.6)
[2021-11-25 07:32] LABS: CHLORIDE 105 mEq/L (98-107)
[2021-11-25 08:00] VITALS: BP 117/71
[2021-11-25] MEDS: PANTOPRAZOLE SODIUM 40 MG/VIAL IV SCH (09:40)
[2021-11-25] MEDS: INSULIN GLARGINE 100 UNITS/ML SUBCUT SCH (10:00)
[2021-11-25 12:00] VITALS: BP 124/49
[2021-11-25] MEDS: FERROUS SULFATE 325MG TABLET PO SCH ×2 (13:19→18:31)
[2021-11-25] MEDS: OLANZAPINE 5MG TABLET PO SCH (13:19)
[2021-11-25] MEDS: ASCORBIC ACID 500 MG TABLET PO SCH ×2 (13:19→18:31)
[2021-11-25] MEDS: VALPROATE SODIUM 250MG/5ML UDC NG SCH ×2 (13:19→20:47)
[2021-11-25] MEDS: QUETIAPINE FUMARATE 50MG TABLET PO SCH ×2 (13:19→20:47)
[2021-11-25 16:00] VITALS: BP 142/52
[2021-11-25] MEDS: LEVOFLOXACIN 500MG PREMIX 100 ML IV SCH (18:31)
[2021-11-25 20:00] VITALS: BP 135/63
[2021-11-26] VITALS: BP 107/54
[2021-11-26] MEDS: INSULIN LISPRO 100 UNITS/ML SUBCUT SCH ×2 (00:11→12:00)
[2021-11-26] MEDS: BLOOD SUGAR DIAGNOSTIC STRIP TEST SCH ×3 (00:11→12:00)
[2021-11-26] MEDS: IPRATROPIUM/ALBUTEROL 0.5-3(2.5)MG/3ML NEB HHN SCH ×4 (01:15→20:21)
[2021-11-26 08:00] VITALS: BP 122/75
[2021-11-26] MEDS: VALPROATE SODIUM 250MG/5ML UDC NG SCH ×2 (09:00→21:09)
[2021-11-26] MEDS: PANTOPRAZOLE SODIUM 40 MG/VIAL IV SCH (09:00)
[2021-11-26] MEDS: INSULIN GLARGINE 100 UNITS/ML SUBCUT SCH (10:00)
[2021-11-26] MEDS: FERROUS SULFATE 325MG TABLET PO SCH ×2 (11:49→18:33)
[2021-11-26] MEDS: OLANZAPINE 5MG TABLET PO SCH (11:49)
[2021-11-26] MEDS: ASCORBIC ACID 500 MG TABLET PO SCH ×2 (11:49→18:33)
[2021-11-26] MEDS: QUETIAPINE FUMARATE 50MG TABLET PO SCH ×2 (11:49→21:09)
[2021-11-26] MEDS: LEVOTHYROXINE SODIUM 150MCG TABLET PO SCH (11:52)
[2021-11-26 12:00] VITALS: BP 140/70
[2021-11-26 12:14] LABS: BASOPHILS % 0.7 % (0.0-2.0); EOSINOPHILS % 4.1 % (0.0-5.0); HEMATOCRIT. 33.9 % (36.0-48.0); HEMOGLOBIN. 10.7 g/dL (12.0-16.0); LYMPHOCYTES % 17.1 % (20.0-50.0); MEAN CORPUSCULAR HEMOGLOBIN 25.7 pg (28.0-32.0); MEAN CORPUSCULAR VOLUME 81.2 fL (81.0-99.0); MEAN PLATELET VOLUME 10.6 fl (7.4-10.4); MONOCYTES % 5.9 % (2.0-8.0); NEUTROPHILS % 72.2 % (40.0-76.0); PLATELET 289 x1000/uL (130-400); RED BLOOD CELL COUNT 4.17 mill/uL (4.2-5.4); RED CELL DISTRIBUTION WIDTH 18.1 % (11.6-14.6)
[2021-11-26 12:23] LABS: CHLORIDE 106 mEq/L (98-107)
[2021-11-26 12:28] LABS: PHOSPHORUS 3.9 mg/dL (2.5-4.9)
[2021-11-26] MEDS: ACETAMINOPHEN 325MG TABLET PO PRN ×2 (13:05→18:40)
[2021-11-26] MEDS: SODIUM CHLORIDE 0.9% INJ 3ML FLUSH IVF SCH ×2 (14:00→21:10)
[2021-11-26] MEDS: LEVOFLOXACIN 500MG PREMIX 100 ML IV SCH (14:31)
[2021-11-26 16:00] VITALS: BP 143/74
[2021-11-26] MEDS: ENOXAPARIN 30MG/0.3ML SYR SUBCUT SCH ×2 (18:33→18:38)
[2021-11-26 20:00] VITALS: BP 110/78
[2021-11-27] VITALS: BP 123/61
[2021-11-27] MEDS: BLOOD SUGAR DIAGNOSTIC STRIP TEST SCH ×4 (00:34→17:35)
[2021-11-27] MEDS: IPRATROPIUM/ALBUTEROL 0.5-3(2.5)MG/3ML NEB HHN SCH ×4 (01:18→21:05)
[2021-11-27 04:00] VITALS: BP 124/76
[2021-11-27] MEDS: ENOXAPARIN 30MG/0.3ML SYR SUBCUT SCH ×2 (05:56→17:45)
[2021-11-27] MEDS: SODIUM CHLORIDE 0.9% INJ 3ML FLUSH IVF SCH ×3 (05:56→22:11)
[2021-11-27] MEDS: LEVOTHYROXINE SODIUM 150MCG TABLET PO SCH (05:57)
[2021-11-27] MEDS: INSULIN LISPRO 100 UNITS/ML SUBCUT SCH ×4 (06:00→17:35)
[2021-11-27] MEDS: ACETAMINOPHEN 325MG TABLET PO PRN (06:02)
[2021-11-27 08:00] VITALS: BP 117/66
[2021-11-27] MEDS: OLANZAPINE 5MG TABLET PO SCH (09:34)
[2021-11-27] MEDS: PANTOPRAZOLE SODIUM 40 MG/VIAL IV SCH (09:34)
[2021-11-27] MEDS: QUETIAPINE FUMARATE 50MG TABLET PO SCH ×2 (09:34→20:22)
[2021-11-27] MEDS: VALPROATE SODIUM 250MG/5ML UDC NG SCH ×2 (09:34→20:22)
[2021-11-27] MEDS: FERROUS SULFATE 325MG TABLET PO SCH ×2 (09:34→17:45)
[2021-11-27] MEDS: ASCORBIC ACID 500 MG TABLET PO SCH ×2 (09:34→17:45)
[2021-11-27] MEDS: INSULIN GLARGINE 100 UNITS/ML SUBCUT SCH (09:49)
[2021-11-27 11:40] VITALS: BP 120/70
[2021-11-27 16:00] VITALS: BP 118/56
[2021-11-27 20:00] VITALS: BP 109/54
[2021-11-28] VITALS: BP 108/66
[2021-11-28] MEDS: IPRATROPIUM/ALBUTEROL 0.5-3(2.5)MG/3ML NEB HHN SCH ×5 (02:47→21:57)
[2021-11-28 04:00] VITALS: BP 107/64
[2021-11-28] MEDS: INSULIN LISPRO 100 UNITS/ML SUBCUT SCH ×4 (05:08→18:00)
[2021-11-28] MEDS: BLOOD SUGAR DIAGNOSTIC STRIP TEST SCH ×4 (05:08→17:50)
[2021-11-28] MEDS: SODIUM CHLORIDE 0.9% INJ 3ML FLUSH IVF SCH ×3 (05:11→21:50)
[2021-11-28] MEDS: ENOXAPARIN 30MG/0.3ML SYR SUBCUT SCH ×2 (05:14→18:20)
[2021-11-28 08:00] VITALS: BP 99/68
[2021-11-28] MEDS: FERROUS SULFATE 325MG TABLET PO SCH ×2 (09:08→16:26)
[2021-11-28] MEDS: ASCORBIC ACID 500 MG TABLET PO SCH ×2 (09:08→16:26)
[2021-11-28] MEDS: LEVOTHYROXINE SODIUM 150MCG TABLET PO SCH (09:09)
[2021-11-28] MEDS: OLANZAPINE 5MG TABLET PO SCH ×2 (09:09→20:22)
[2021-11-28] MEDS: QUETIAPINE FUMARATE 50MG TABLET PO SCH ×2 (09:09→20:21)
[2021-11-28] MEDS: PANTOPRAZOLE SODIUM 40 MG/VIAL IV SCH (09:09)
[2021-11-28] MEDS: VALPROATE SODIUM 250MG/5ML UDC NG SCH ×2 (09:14→20:21)
[2021-11-28 09:20] LABS: CHLORIDE 108 mEq/L (98-107)
[2021-11-28 09:23] LABS: BASOPHILS % 0.5 % (0.0-2.0); EOSINOPHILS % 5.7 % (0.0-5.0); HEMATOCRIT. 32.5 % (36.0-48.0); HEMOGLOBIN. 10.2 g/dL (12.0-16.0); LYMPHOCYTES % 27.1 % (20.0-50.0); MEAN CORPUSCULAR HEMOGLOBIN 25.2 pg (28.0-32.0); MEAN CORPUSCULAR VOLUME 80.3 fL (81.0-99.0); MEAN PLATELET VOLUME 10.5 fl (7.4-10.4); MONOCYTES % 8.1 % (2.0-8.0); NEUTROPHILS % 58.6 % (40.0-76.0); PLATELET 287 x1000/uL (130-400); RED BLOOD CELL COUNT 4.05 mill/uL (4.2-5.4)
[2021-11-28 12:00] VITALS: BP 122/60
[2021-11-28] MEDS: INSULIN GLARGINE 100 UNITS/ML SUBCUT SCH (12:24)
[2021-11-28] MEDS ORDERED: POTASSIUM CHLORIDE 20MEQ TABLET SR PO NR (13:00)
[2021-11-28 14:45] LABS: PHOSPHORUS 2.3 mg/dL (2.5-4.9)
[2021-11-28 16:00] VITALS: BP 117/76
[2021-11-28] MEDS: ACETAMINOPHEN 325MG TABLET PO PRN (16:26)
[2021-11-29] VITALS: BP 93/63
[2021-11-29] MEDS: BLOOD SUGAR DIAGNOSTIC STRIP TEST SCH ×4 (00:46→17:13)
[2021-11-29] MEDS: IPRATROPIUM/ALBUTEROL 0.5-3(2.5)MG/3ML NEB HHN SCH ×4 (01:05→20:30)
[2021-11-29 04:00] VITALS: BP 124/63
[2021-11-29] MEDS: ENOXAPARIN 30MG/0.3ML SYR SUBCUT SCH ×2 (05:04→17:13)
[2021-11-29] MEDS: SODIUM CHLORIDE 0.9% INJ 3ML FLUSH IVF SCH ×3 (05:23→21:34)
[2021-11-29] MEDS: INSULIN LISPRO 100 UNITS/ML SUBCUT SCH ×4 (06:00→17:13)
[2021-11-29 07:17] LABS: BASOPHILS % 0.4 % (0.0-2.0); EOSINOPHILS % 3.5 % (0.0-5.0); HEMATOCRIT. 31.7 % (36.0-48.0); HEMOGLOBIN. 10.1 g/dL (12.0-16.0); LYMPHOCYTES % 31.1 % (20.0-50.0); MEAN CORPUSCULAR HEMOGLOBIN 25.2 pg (28.0-32.0); MEAN PLATELET VOLUME 10.1 fl (7.4-10.4); MONOCYTES % 7.9 % (2.0-8.0); NEUTROPHILS % 57.1 % (40.0-76.0); PLATELET 280 x1000/uL (130-400); RED BLOOD CELL COUNT 4.02 mill/uL (4.2-5.4); RED CELL DISTRIBUTION WIDTH 18.2 % (11.6-14.6)
[2021-11-29 07:39] LABS: CHLORIDE 105 mEq/L (98-107)
[2021-11-29 08:02] VITALS: BP 122/63
[2021-11-29] MEDS: VALPROATE SODIUM 250MG/5ML UDC NG SCH ×2 (09:06→21:34)
[2021-11-29] MEDS: PANTOPRAZOLE SODIUM 40 MG/VIAL IV SCH (09:06)
[2021-11-29] MEDS: FERROUS SULFATE 325MG TABLET PO SCH ×2 (09:07→16:50)
[2021-11-29] MEDS: OLANZAPINE 5MG TABLET PO SCH ×2 (09:07→21:34)
[2021-11-29] MEDS: QUETIAPINE FUMARATE 50MG TABLET PO SCH ×2 (09:07→21:34)
[2021-11-29] MEDS: ASCORBIC ACID 500 MG TABLET PO SCH ×2 (09:07→16:50)
[2021-11-29] MEDS: LEVOTHYROXINE SODIUM 150MCG TABLET PO SCH (09:07)
[2021-11-29] MEDS: INSULIN GLARGINE 100 UNITS/ML SUBCUT SCH (10:13)
[2021-11-29 12:00] VITALS: BP 125/64
[2021-11-29] MEDS ORDERED: POTASSIUM CHLORIDE 20MEQ TABLET SR PO SCH (13:00)
[2021-11-29 14:38] LABS: PHOSPHORUS 5.9 mg/dL (2.5-4.9)
[2021-11-29 16:06] VITALS: BP 114/57
[2021-11-29 20:00] VITALS: BP 112/53
[2021-11-29] MEDS ORDERED: BENZTROPINE MESYLATE 1MG TABLET PO SCH (21:00)
[2021-11-30] VITALS: BP 137/67
[2021-11-30] MEDS: IPRATROPIUM/ALBUTEROL 0.5-3(2.5)MG/3ML NEB HHN SCH ×4 (02:45→21:17)
[2021-11-30 04:00] VITALS: BP 112/66
[2021-11-30] MEDS: SODIUM CHLORIDE 0.9% INJ 3ML FLUSH IVF SCH ×3 (05:46→21:45)
[2021-11-30] MEDS: INSULIN LISPRO 100 UNITS/ML SUBCUT SCH ×4 (06:00→17:09)
[2021-11-30 06:20] LABS: CHLORIDE 107 mEq/L (98-107)
[2021-11-30] MEDS: ENOXAPARIN 30MG/0.3ML SYR SUBCUT SCH ×2 (06:33→18:00)
[2021-11-30] MEDS: LEVOTHYROXINE SODIUM 150MCG TABLET PO SCH (06:33)
[2021-11-30] MEDS: BLOOD SUGAR DIAGNOSTIC STRIP TEST SCH ×4 (06:33→17:08)
[2021-11-30 08:00] VITALS: BP 118/59
[2021-11-30] MEDS ORDERED: POTASSIUM CHLORIDE 20MEQ TABLET SR PO NR (08:15)
[2021-11-30] MEDS: ASCORBIC ACID 500 MG TABLET PO SCH ×2 (08:53→16:27)
[2021-11-30] MEDS: QUETIAPINE FUMARATE 50MG TABLET PO SCH ×2 (08:53→21:44)
[2021-11-30] MEDS: FERROUS SULFATE 325MG TABLET PO SCH ×2 (08:53→16:27)
[2021-11-30] MEDS: PANTOPRAZOLE SODIUM 40 MG/VIAL IV SCH (08:53)
[2021-11-30] MEDS: VALPROATE SODIUM 250MG/5ML UDC NG SCH ×2 (08:53→21:44)
[2021-11-30] MEDS: OLANZAPINE 5MG TABLET PO SCH (08:54)
[2021-11-30] MEDS: INSULIN GLARGINE 100 UNITS/ML SUBCUT SCH (10:10)
[2021-11-30] MEDS: HALOPERIDOL LACTATE 5MG/ML VIAL IM PRN ×2 (11:18→21:36)
[2021-11-30 12:03] VITALS: BP 118/40
[2021-11-30] MEDS: BENZTROPINE MESYLATE 1MG TABLET PO SCH ×2 (13:05→21:44)
[2021-11-30 15:38] VITALS: BP 122/65
[2021-11-30] MEDS: ACETAMINOPHEN 325MG TABLET PO PRN (16:22)
[2021-11-30 20:00] VITALS: BP 119/81
[2021-11-30] MEDS: RISPERIDONE 1MG TABLET PO SCH (21:44)
[2021-12-01] VITALS: BP 91/56
[2021-12-01] MEDS: BLOOD SUGAR DIAGNOSTIC STRIP TEST SCH ×5 (00:43→23:34)
[2021-12-01] MEDS: ACETAMINOPHEN 325MG TABLET PO PRN (00:45)
[2021-12-01] MEDS: IPRATROPIUM/ALBUTEROL 0.5-3(2.5)MG/3ML NEB HHN SCH ×4 (02:07→20:27)
[2021-12-01 04:00] VITALS: BP 150/80
[2021-12-01] MEDS: ENOXAPARIN 30MG/0.3ML SYR SUBCUT SCH ×2 (05:25→17:16)
[2021-12-01] MEDS: INSULIN LISPRO 100 UNITS/ML SUBCUT SCH ×5 (05:28→23:41)
[2021-12-01] MEDS: SODIUM CHLORIDE 0.9% INJ 3ML FLUSH IVF SCH ×3 (05:29→21:29)
[2021-12-01 07:09] LABS: CHLORIDE 106 mEq/L (98-107)
[2021-12-01 07:53] LABS: BASOPHILS % 0.4 % (0.0-2.0); EOSINOPHILS % 1.9 % (0.0-5.0); HEMATOCRIT. 33.5 % (36.0-48.0); HEMOGLOBIN. 10.6 g/dL (12.0-16.0); LYMPHOCYTES % 32.1 % (20.0-50.0); MEAN CORPUSCULAR HEMOGLOBIN 25.3 pg (28.0-32.0); MEAN CORPUSCULAR VOLUME 79.9 fL (81.0-99.0); MONOCYTES % 10.4 % (2.0-8.0); NEUTROPHILS % 55.2 % (40.0-76.0); PLATELET 340 x1000/uL (130-400); RED BLOOD CELL COUNT 4.18 mill/uL (4.2-5.4); RED CELL DISTRIBUTION WIDTH 18.2 % (11.6-14.6)
[2021-12-01] MEDS: BENZTROPINE MESYLATE 1MG TABLET PO SCH ×2 (08:16→17:17)
[2021-12-01] MEDS: QUETIAPINE FUMARATE 50MG TABLET PO SCH ×2 (08:17→21:29)
[2021-12-01] MEDS: FERROUS SULFATE 325MG TABLET PO SCH ×2 (08:17→17:16)
[2021-12-01] MEDS: PANTOPRAZOLE SODIUM 40 MG/VIAL IV SCH (08:17)
[2021-12-01] MEDS: LEVOTHYROXINE SODIUM 150MCG TABLET PO SCH (08:17)
[2021-12-01] MEDS: RISPERIDONE 1MG TABLET PO SCH ×2 (08:17→21:29)
[2021-12-01] MEDS: VALPROATE SODIUM 250MG/5ML UDC NG SCH ×2 (08:17→21:29)
[2021-12-01 08:25] VITALS: BP 107/89
[2021-12-01] MEDS ORDERED: POTASSIUM CHLORIDE 20MEQ TABLET SR PO NR (10:00)
[2021-12-01] MEDS: ASCORBIC ACID 500 MG TABLET PO SCH ×2 (10:53→17:17)
[2021-12-01] MEDS: INSULIN GLARGINE 100 UNITS/ML SUBCUT SCH (10:56)
[2021-12-01 11:30] VITALS: BP 129/88
[2021-12-01 16:00] VITALS: BP 141/89
[2021-12-01 20:00] VITALS: BP 142/85
[2021-12-02] VITALS: BP 159/81
[2021-12-02] MEDS: IPRATROPIUM/ALBUTEROL 0.5-3(2.5)MG/3ML NEB HHN SCH ×3 (01:42→14:16)
[2021-12-02 04:00] VITALS: BP 139/93
[2021-12-02] MEDS: SODIUM CHLORIDE 0.9% INJ 3ML FLUSH IVF SCH ×2 (05:49→13:53)
[2021-12-02] MEDS: BLOOD SUGAR DIAGNOSTIC STRIP TEST SCH ×2 (05:52→12:00)
[2021-12-02] MEDS: ENOXAPARIN 30MG/0.3ML SYR SUBCUT SCH (05:52)
[2021-12-02] MEDS: INSULIN LISPRO 100 UNITS/ML SUBCUT SCH ×2 (06:00→14:00)
[2021-12-02] MEDS: LEVOTHYROXINE SODIUM 150MCG TABLET PO SCH (06:39)
[2021-12-02 06:49] LABS: BASOPHILS % 0.4 % (0.0-2.0); EOSINOPHILS % 4.4 % (0.0-5.0); HEMATOCRIT. 32.5 % (36.0-48.0); HEMOGLOBIN. 10.3 g/dL (12.0-16.0); LYMPHOCYTES % 21.1 % (20.0-50.0); MEAN CORPUSCULAR HEMOGLOBIN 25.3 pg (28.0-32.0); MEAN PLATELET VOLUME 9.2 fl (7.4-10.4); MONOCYTES % 8.7 % (2.0-8.0); NEUTROPHILS % 65.4 % (40.0-76.0); PLATELET 315 x1000/uL (130-400); RED BLOOD CELL COUNT 4.06 mill/uL (4.2-5.4); RED CELL DISTRIBUTION WIDTH 18.7 % (11.6-14.6)
[2021-12-02 07:27] LABS: CHLORIDE 107 mEq/L (98-107)
[2021-12-02 08:10] VITALS: BP 129/70
[2021-12-02] MEDS: PANTOPRAZOLE SODIUM 40 MG/VIAL IV SCH (08:42)
[2021-12-02] MEDS: VALPROATE SODIUM 250MG/5ML UDC NG SCH (08:43)
[2021-12-02] MEDS: QUETIAPINE FUMARATE 50MG TABLET PO SCH (08:43)
[2021-12-02] MEDS: ASCORBIC ACID 500 MG TABLET PO SCH (08:43)
[2021-12-02] MEDS: FERROUS SULFATE 325MG TABLET PO SCH (08:43)
[2021-12-02] MEDS: BENZTROPINE MESYLATE 1MG TABLET PO SCH (08:43)
[2021-12-02] MEDS: RISPERIDONE 1MG TABLET PO SCH (08:43)
[2021-12-02] MEDS: INSULIN GLARGINE 100 UNITS/ML SUBCUT SCH (11:18)
[2021-12-02 11:40] VITALS: BP 109/67
[2021-12-02 12:02] VITALS: BP 109/67
== END 2021-12-02 15:40 | DRG 871 ==
LOC: ER 11:17 → EDBEDREQ 12:28 → EDBEDREQTM 12:28 → CVICU 14:31 → EDBEDREQTM 14:38 → EDBEDREQ 14:38 → ENRESERV 16:30 → 6WST 11-15 13:17
PROVIDERS: ADMIT Internal Medicine; ATTEND Internal Medicine
PROC: 5A1945Z Respiratory Ventilation, 24-96 Consecutive Hours (ICD-10-PCS; principal; 2021-11-11)
PROC: 0BH17EZ Insertion of Endotracheal Airway into Trachea, Via Natural or Artificial Opening (ICD-10-PCS; 2021-11-11)
DX: A41.02 Sepsis due to Methicillin resistant Staphylococcus aureus (principal); G92.8 Other toxic encephalopathy; J96.01 Acute respiratory failure with hypoxia; J15.212 Pneumonia due to Methicillin resistant Staphylococcus aureus; N17.0 Acute kidney failure with tubular necrosis; E44.1 Mild protein-calorie malnutrition; E87.0 Hyperosmolality and hypernatremia; N39.0 Urinary tract infection, site not specified; E03.9 Hypothyroidism, unspecified; E11.65 Type 2 diabetes mellitus with hyperglycemia; E66.01 Morbid (severe) obesity due to excess calories; E86.1 Hypovolemia; G40.909 Epilepsy, unspecified, not intractable, without status epilepticus; F20.9 Schizophrenia, unspecified; R13.10 Dysphagia, unspecified; B96.20 Unspecified Escherichia coli [E. coli] as the cause of diseases classified elsewhere; D64.9 Anemia, unspecified; E87.6 Hypokalemia; E78.2 Mixed hyperlipidemia; E87.8 Other disorders of electrolyte and fluid balance, not elsewhere classified; R00.0 Tachycardia, unspecified; E87.5 Hyperkalemia; R79.89 Other specified abnormal findings of blood chemistry; Z20.822 Contact with and (suspected) exposure to COVID-19; Z78.1 Physical restraint status; Z86.73 Personal history of transient ischemic attack (TIA), and cerebral infarction without residual deficits; Z68.33 Body mass index [BMI] 33.0-33.9, adult; Z79.84 Long term (current) use of oral hypoglycemic drugs; Z79.82 Long term (current) use of aspirin; F31.9 Bipolar disorder, unspecified
CPT/HCPCS: 31500; 36415; 36600; 71045; 74018; 80048; 80053; 80202; 81003; 82375; 82607; 82728; 82746; 82805; 82962; 83540; 83550; 83605; 83735; 83880; 84100; 84145; 84443; 84478; 84484; 85025; 85027; 85044; 87070; 87077; 87186; 87426; 87804; 92610; 93005; 93306; 93970; 94002; 94003; 94640; 99291; A6261; C1893; C9113; C9803; J0330; J1100; J1200; J1630; J1650; J1815; J1956; J2543; J2704; J3010; J3370; J3475; J3480; J3490; J7030; J7060; J7070; A4315